=== PATIENT | male | born 2000 | race African-American/Black ===

== ENCOUNTER 2024-07-31 22:31 | Emergency (ER) | payer SELFPAY | END 2024-08-01 01:42 | disposition home or self-care (01) | LOC: ERS 22:31 | DX: S46.302A Unspecified injury of muscle, fascia and tendon of triceps, left arm, initial encounter (principal); M25.522 Pain in left elbow; X50.0XXA Overexertion from strenuous movement or load, initial encounter; Y93.31 Activity, mountain climbing, rock climbing and wall climbing | CPT/HCPCS: 99283 ==